=== PATIENT | female | born 1950 | race Caucasian/White ===

== ENCOUNTER 2024-01-10 22:42 | Emergency (ER) | payer OTHER ==
[2024-01-10 22:52] VITALS: BP 145/76; PULSE 58; RESP 18; TEMP 97.5; BMI 25.0
[2024-01-11 00:31] LABS: EPI CELLS 21 /uL (0-25.1); HYALINE CASTS 0 /uL (0-3.1); URINE APPEARANCE CLEAR; URINE BACTERIA 435 /uL (0-1359); URINE BILIRUBIN NEGATIVE (NEGATIVE); URINE COLOR YELLOW; URINE GLUCOSE (UA) 3+ (NEGATIVE); URINE KETONE NEGATIVE (NEGATIVE); URINE LEUK ESTERASE NEGATIVE (NEGATIVE); URINE NITRITE NEGATIVE (NEGATIVE); URINE PROTEIN 2+ (NEGATIVE); URINE RBC 7 /uL (0-23.9); URINE UROBILINOGEN 0.2 mg/dL (0.2-1.0); URINE WBC 34 /uL (0-25.8)
== END 2024-01-11 00:54 | disposition home or self-care (01) ==
LOC: JER 22:42
DX: N89.8 Other specified noninflammatory disorders of vagina (principal)
CPT/HCPCS: 81003; 87086; 99283-25